=== PATIENT | female | born 1950 | race Caucasian/White ===

== ENCOUNTER 2020-02-19 14:52 | Emergency (ER) | payer MEDICARE, SELFPAY ==
--- NOTE | ~2020-02-19 | XR_ITS ---
XR nasal bones min 3V DATE: 02/19/2020 16:11 INDICATION: Fall, nasal injury today TECHNIQUE: Vega and left right lateral views of the nasal bones COMPARISON: None FINDINGS: The anterior maxillary spine appears intact. No nasal bone fracture is evident. IMPRESSION: Negative nasal bones Reviewed, dictated and finalized at location A. IMPRESSION: Negative nasal bones
[2020-02-19 15:11] VITALS: BP 172/86; PULSE 77; RESP 16; TEMP 37; O2SAT 99
--- NOTE | 2020-02-19 15:30 | ED.WOUNDLAC ---
HPI - Wound/Laceration General Chief Complaint: Wound/Laceration Stated Complaint: Fall Cut r/l hand/nose/head Time Seen by Provider: 02/19/20 15:30 Source: patient Mode of arrival: ambulatory Limitations: no limitations History of Present Illness HPI narrative: Priscilla Hickman is a 69 yo female with a PMH of depression, high cholesterol, hypertension, diabetes, hypothyroid, prior leakage, who comes to express care after fall while walking dog. Has abrasion of the forehead and across nose. Abrasions on bilateral palms of hands Related Data Home Medications Medication Instructions Recorded Confirmed Potassium 99 mg PO DAILY 02/19/20 calcium carbonate [Calcium 600] 600 mg PO DAILY 02/19/20 02/19/20 cholecalciferol (vitamin D3) 50 mcg PO DAILY 02/19/20 02/19/20 [Vitamin D3] coQ10 (liposomal ubiquinol) 100 mg PO DAILY 02/19/20 02/19/20 [Active Q] diphenhydramine-acetaminophen 2 tablet PO HS 02/19/20 02/19/20 [Tylenol PM Extra Strength] duloxetine [Cymbalta] 60 mg PO DAILY 02/19/20 02/19/20 liothyronine 25 mcg PO TID 02/19/20 02/19/20 mecobalamin (vitamin B12) 500 mcg PO DAILY 02/19/20 02/19/20 multivit with min-folic acid 1 tablet PO DAILY 02/19/20 02/19/20 [Centrum MultiGummies] nebivolol [Bystolic] 10 mg PO DAILY 02/19/20 02/19/20 omega [id number] oil [Fish Oil] 1 cap PO DAILY 02/19/20 02/19/20 oxybutynin chloride [Ditropan XL] 10 mg PO DAILY 02/19/20 02/19/20 phentermine 37.5 mg PO DAILY 02/19/20 02/19/20 rosuvastatin [Crestor] 5 mg PO DAILY 02/19/20 02/19/20 sitagliptin [Januvia] 100 mg PO DAILY 02/19/20 02/19/20 spironolactone [Aldactone] 25 mg PO DAILY 02/19/20 02/19/20 valsartan 160 mg PO DAILY 02/19/20 02/19/20 Allergies Allergy/AdvReac Type Severity Reaction Status Date / Time No Known Allergies Allergy Verified 02/19/20 15:15 Review of Systems Review of Systems: Narrative: CONSTITUTIONAL: Denies fever, chills, sweats. EYES: Denies visual changes, redness, discharge. ENT: Denies rhinorrhea, congestion, sore throat, otalgia. CARDIOVASCULAR: Denies chest pain, palpitations, edema. RESPIRATORY: Denies dyspnea, wheezing, cough GASTROINTESTINAL: Denies abdominal pain, nausea, vomiting, diarrhea. GENITOURINARY: Denies dysuria, hematuria, abnormal discharge SKIN: Denies rash or itching. Bilateral palm abrasions, patient forehead and across nose NEUROLOGIC: Denies numbness, or focal weakness. PSYCHIATRIC: Denies anxiety or depression. [facility] Family History Family History Other Diabetes mellitus Hypertension Social History Social History (Updated 02/19/20 @ 15:34 by Helena Wiggins CNP) Smoking status: Former smoker Alcohol intake: current Gender identity (if verbalized by the patient): Female Comments At time of signature, I agree with nursing past medical, surgical, social and family history. There is no relevant family history pertinent to the presenting complaint. Exam Narrative: Exam Narrative: GENERAL: This is a well-nourished, well-developed patient, in mild distress. HEAD: normocephalic, atraumatic. EYES: PERRL. Sclera clear/white. Vision is grossly intact. EARS: External ears normal, auditory canals clear and without drainage, TMs normal without perforation. Hearing grossly intact. NOSE: External nose normal without nasal discharge, nares without redness, no rhinorrhea. THROAT: Mucous membranes moist, posterior pharynx NECK: Neck supple, non-tender CARDIOVASCULAR: Regular rate and rhythm without murmurs, gallops, or rubs. RESPIRATORY: Clear to auscultation. Breath sounds equal bilaterally. No wheezes, rales, or rhonchi. GASTROINTESTINAL: Abdomen soft, non-tender, SKIN: warm, intact with no suspicious lesions or rash, good texture and turgor. NEURO: awake, alert, and oriented to person, place and time. There were no obvious focal neurologic abnormalities. Steady gait EXTREMITIES: Normal range of motion. BACK: Nonte
[2020-02-19] MEDS: TETANUS,DIPHTHERIA,AC PERTUSSIS ADULT (0.5 ML) BOOSTRIX IM (15:51)
== END 2020-02-19 16:30 | disposition home or self-care (01) ==
PROVIDERS: Emergency Provider Nurse Practitioner; PCP Physician Assistant
DX: S01.81XA Laceration without foreign body of other part of head, initial encounter (principal); I10 Essential (primary) hypertension; E11.9 Type 2 diabetes mellitus without complications; E03.9 Hypothyroidism, unspecified; Z87.891 Personal history of nicotine dependence
CPT/HCPCS: 12011; 70160; 90471; 90715; 99213; G0463

== ENCOUNTER → 2020-09-06 10:43 | Outpatient (CLI) | payer MEDICARE, SELFPAY ==
--- NOTE | ~2020-09-06 | DEXA_ITS ---
Bone Density Report Name: Priscilla Hickman Age: 70 Sex: Female Ethnicity: White Date of : 1950 Indication: postmenopausal; screening for osteoporosis; height loss; Referring Provider: Canelo, Brenna Study: Bone densitometry was performed. Exam Date: September 06, 2020 Accession number: [id number] Bone Density: Region BMD T-score Z-score Classification AP Spine (L1-L4) 1.252 1.9 3.8 Normal Femoral Neck (Left) 0.836 -0.1 1.6 Normal Total Hip (Left) 1.160 1.8 3.2 Normal Femoral Neck (Right) 0.819 -0.3 1.4 Normal Total Hip (Right) 1.200 2.1 3.5 Normal Total Hip Mean 1.180 2.0 3.4 Normal World Health Organization criteria for BMD impression classify patients as: Normal (T-score at or above -1.0), Osteopenia (T-score between -1.0 and -2.5), or Osteoporosis (T-score at or below -2.5). 10-year Fracture Risk: FRAX not reported because: All T-scores for Spine Total, Hip Total, Femoral Neck at or above -1.0 Previous Exams: Region Exam Age BMD T-score BMD Change BMD Change Date g/cm2 vs Baseline vs Previous AP Spine(L1-L4) 09/06/2020 70 1.252 1.9 0.001 -0.023* 10/03/2016 66 1.275 2.1 0.024* -0.046* 10/03/2013 63 1.321 2.5 0.071* 0.024* 07/23/2010 60 1.297 2.3 0.047* 0.047* 01/27/2006 55 1.250 1.8 Total Hip(Left) 09/06/2020 70 1.160 1.8 -0.006 -0.004 10/03/2016 66 1.165 1.8 -0.001 0.081* 10/03/2013 63 1.084 1.2 -0.082* 0.005 07/23/2010 60 1.079 1.1 -0.086* -0.086* 01/27/2006 55 1.166 1.8 Total Hip(Right) 09/06/2020 70 1.200 2.1 -0.060* -0.034* 10/03/2016 66 1.234 2.4 -0.026 0.087* 10/03/2013 63 1.147 1.7 -0.113* 0.019 07/23/2010 60 1.128 1.5 -0.132* -0.132* 01/27/2006 55 1.260 2.6 *Denotes significance at 95% confidence level, LSC for AP Spine = 0.022 g/cm2, LSC for Total Hip = 0.027 g/cm2 Clinical Information Provided by Patient: Has used the following medications: Vitamin D, Calcium Patient maximum height was 65 Menopause Age: 52 No regular weight bearing exercise Drinks caffeinated beverages Onset of menses at age 14 Number of children 0 Impression: The patient has normal bone mass. The BMD for the AP Spine(L1-L4) decreased, changing by
--- NOTE | ~2020-09-06 | MM_ITS ---
EXAMINATION: MM screening [facility] BI w hort[place] HISTORY: Screening mammogram TECHNIQUE: Craniocaudal and mediolateral oblique 3-D tomosynthesis images were obtained and synthetic 2-D images were generated. CAD analysis was submitted and interpreted. COMPARISON: 07/15/2019, 07/12/2018, 07/06/2017 BREAST PARENCHYMAL COMPOSITION: The breasts are almost entirely fatty. FINDINGS: A subareolar mass in the slightly outer right breast has an appearance similar to prior [facility] mograms. There is no evidence of suspicious mass, calcification, or architectural distortion to sugge st malignancy in either breast. There has been no suspicious interval change. IMPRESSION: 1. No mammographic evidence of malignancy. 2. Recommend routine screening mammography in one year. BI-RADS Category 2: Benign finding(s). Reviewed, dictated and finalized at location A. L TURNER
== END ==
PROVIDERS: PCP Physician Assistant; Visit Provider Nurse Practitioner
DX: Z12.31 Encounter for screening mammogram for malignant neoplasm of breast (principal); Z78.0 Asymptomatic menopausal state
CPT/HCPCS: 77063; 77067; 77080

== ENCOUNTER → 2022-02-18 13:44 | Outpatient (CLI) | payer MEDICARE, SELFPAY ==
--- NOTE | ~2022-02-18 | MM_ITS ---
EXAMINATION: MM screening [facility] BI w [place] HISTORY: Screening TECHNIQUE: Craniocaudal and mediolateral oblique 3-D tomosynthesis images were obtained and synthetic 2-D images were generated. CAD analysis was submitted and interpreted. COMPARISON: Comparison to multiple prior studies sequentially, with oldest reviewed study dated 05/2016. BREAST PARENCHYMAL COMPOSITION: There are scattered areas of fibroglandular density. FINDINGS: There is no evidence of suspicious mass, calcification, or architectural distortion to sugg est malignancy in either breast. There has been no suspicious interval change. IMPRESSION: 1. No mammographic evidence of malignancy. 2. Recommend routine screening mammography in one year. BI-RADS Category 1: Negative Reviewed, dictated and finalized at location A.
== END ==
PROVIDERS: PCP Physician Assistant; Visit Provider Obstetrics & Gynecology Gynecology
DX: Z12.31 Encounter for screening mammogram for malignant neoplasm of breast (principal)
CPT/HCPCS: 77063; 77067

== ENCOUNTER 2023-01-29 13:56 | Outpatient (CLI) | payer MEDICARE, SELFPAY ==
--- NOTE | ~2023-01-29 | XR_ITS ---
XR chest 2V DATE: 01/29/2023 14:23 INDICATION: Subacute cough for years TECHNIQUE: PA and lateral views COMPARISON: 10/08/2010 PA and lateral chest FINDINGS: Normal heart size. Aortic arch calcification. No hilar or mediastinal enlargement. No pulmonary infiltrate or consolidation, pleural effusion or pulmonary vascular congestion or pneumo thorax. IMPRESSION: No active cardiopulmonary disease. Aortic atherosclerosis. Reviewed, dictated and finalized at location A.
== END 2023-01-29 13:57 | disposition home or self-care (01) ==
PROVIDERS: PCP Physician Assistant; Visit Provider Physician Assistant
DX: R05.2 Subacute cough (principal); I70.0 Atherosclerosis of aorta
CPT/HCPCS: 71046

== ENCOUNTER → 2023-02-20 10:27 | Outpatient (CLI) | payer MEDICARE, SELFPAY ==
--- NOTE | ~2023-02-20 | MM_ITS ---
EXAMINATION: MM screening [facility] BI w [place] HISTORY: Screening mammogram TECHNIQUE: Craniocaudal and mediolateral oblique 3-D tomosynthesis images were obtained and synthetic 2-D images were generated. CAD analysis was submitted and interpreted. COMPARISON: February 18, 2022, September 06, 2020, July 15, 2019 bilateral [facility] BREAST PARENCHYMAL COMPOSITION: The breasts are almost entirely fatty. FINDINGS: There is no evidence of suspicious mass, calcification, or architectural distortion to sugg est malignancy in either breast. There has been no suspicious interval change. IMPRESSION: 1. No mammographic evidence of malignancy. 2. Recommend routine screening mammography in one year. BI-RADS Category 1: Negative Reviewed, dictated and finalized at location A.
== END ==
PROVIDERS: PCP Nurse Practitioner; Visit Provider Nurse Practitioner
DX: Z12.31 Encounter for screening mammogram for malignant neoplasm of breast (principal)
CPT/HCPCS: 77063; 77067

== ENCOUNTER 2023-07-21 12:07 | Outpatient (CLI) | payer MEDICARE, SELFPAY ==
--- NOTE | ~2023-07-21 | XR_ITS ---
EXAMINATION: XR chest 2V 07/21/2023 12:22 INDICATION: Cough for greater than one year PROCEDURE: 2 view chest COMPARISON: 01/29/2023 FINDINGS: The lungs are clear. The cardiomediastinal silhouette is within normal limits. There are no pleural effusions. There is no pneumothorax suspected. IMPRESSION: 1: NO ACUTE CARDIOPULMONARY DISEASE. Reviewed, dictated and finalized at location L.
== END 2023-07-21 12:08 | disposition home or self-care (01) ==
LOC: ANHIMG 12:10
PROVIDERS: PCP Family Medicine; Visit Provider Physician Assistant
DX: R05.1 Acute cough (principal); R09.89 Other specified symptoms and signs involving the circulatory and respiratory systems
CPT/HCPCS: 71046

== ENCOUNTER 2025-01-04 09:47 | Outpatient (CLI) | payer MEDICARE, SELFPAY ==
--- NOTE | ~2025-01-04 | XR_ITS ---
CHEST RADIOGRAPH, PA AND LATERAL CLINICAL HISTORY: R06.00 - Dyspnea, unspecified . COMPARISON: 07/21/2023 TECHNIQUE: PA and lateral views of the chest. FINDINGS The cardiomediastinal silhouette is unremarkable. The lungs are clear. Visualized osseous structures and soft tissues are unremarkable. IMPRESSION: No focal infiltrate or effusion. Reviewed, dictated and finalized at location A.
== END 2025-01-04 09:48 | disposition home or self-care (01) ==
LOC: MICIMG 09:48
PROVIDERS: PCP Family Medicine; Visit Provider Student in an Organized Health Care Education/Training Program
DX: R06.00 Dyspnea, unspecified (principal)
CPT/HCPCS: 71046

== ENCOUNTER 2025-01-16 10:43 | Outpatient (CLI) | payer MEDICARE, SELFPAY ==
--- NOTE | ~2025-01-16 | MM_ITS ---
EXAMINATION: MM screening [facility] BI w [place] HISTORY: Screening TECHNIQUE: Craniocaudal and mediolateral oblique 3-D tomosynthesis images were obtained and synthetic 2-D images were generated. CAD analysis was submitted and interpreted. COMPARISON: 02/20/2023 and dating back to 07/15/2019 BREAST PARENCHYMAL COMPOSITION: There are scattered areas of fibroglandular density. FINDINGS: Punctate calcifications are detected bilaterally, stable and benign in appearance. Redemonstration of an intramammary lymph node within the upper outer right breast. Stable parenchymal pattern without suspicious microcalcifications, architectural distortion, discrete masses or significant asymmetry. IMPRESSION: 1. No mammographic evidence of malignancy. 2. Recommend routine screening mammography in one year. BI-RADS Category 2: Benign finding(s). Reviewed, dictated and finalized at location A.
== END 2025-01-16 10:44 | disposition home or self-care (01) ==
LOC: MICIMG 10:43
PROVIDERS: PCP Family Medicine; Visit Provider Nurse Practitioner
DX: Z12.31 Encounter for screening mammogram for malignant neoplasm of breast (principal)
CPT/HCPCS: 77063; 77067

== ENCOUNTER 2025-02-27 15:18 | Outpatient (CLI) | payer MEDICARE, SELFPAY ==
--- NOTE | ~2025-02-27 | XR_ITS ---
XR shoulder RT min 2V Ordering provider: Linda Bhat PA-C History: . M25.511 - Pain in right shoulder . Comparison: None. FINDINGS: BONES: No acute fracture or dislocation. JOINT SPACES: The acromioclavicular joint is normal. The glenohumeral joint is normal. SOFT TISSUES: Normal. IMPRESSION: No acute osseous abnormality right shoulder. Reviewed, dictated and finalized at location A.
== END 2025-02-27 15:19 | disposition home or self-care (01) ==
LOC: MICIMG 15:19
PROVIDERS: PCP Family Medicine; Visit Provider Student in an Organized Health Care Education/Training Program
DX: M25.511 Pain in right shoulder (principal)
CPT/HCPCS: 73030

== ENCOUNTER 2025-03-27 12:39 | Outpatient (CLI) | payer MEDICARE, SELFPAY ==
--- NOTE | ~2025-03-27 | DEXA_ITS ---
Bone Density Report Name: SHAUN DWYER Age: 74 Sex: Female Ethnicity: White Date of : 1950 Indication: postmenopausal; screening for osteoporosis; height loss; Referring Provider: Canelo*Ana Luisa, Brenna Study: Bone densitometry was performed. Exam Date: March 27, 2025 Accession number: [id number] Bone Density: Region BMD T-score Z-score Classification AP Spine(L1-L4) 1.315 2.4 4.7 Normal Femoral Neck (Left) 0.823 -0.2 1.7 Normal Total Hip (Left) 1.104 1.3 3.0 Normal Femoral Neck (Right) 0.838 -0.1 1.9 Normal Total Hip (Right) 1.155 1.7 3.4 Normal Total Hip Mean 1.129 1.5 3.2 Normal World Health Organization criteria for BMD impression classify patients as: Normal (T-score at or above -1.0), Osteopenia (T-score between -1.0 and -2.5), or Osteoporosis (T-score at or below -2.5). 10-year Fracture Risk: FRAX not reported because: All T-scores for Spine Total, Hip Total, Femoral Neck at or above -1.0 Previous Exams: -- Region Exam Age BMD T-score BMD Change BMD Change Date g/cm2 vs Baseline vs Previous -- AP Spine (L1-L4) 03/27/2025 74 1.315 2.4 5.2%* 5.1%* 09/06/2020 70 1.252 1.9 0.1% -1.8%* 10/03/2016 66 1.275 2.1 1.9%* -3.5%* 10/03/2013 63 1.321 2.5 5.7%* 1.8%* 07/23/2010 60 1.297 2.3 3.7%* 3.7%* 01/27/2006 55 1.250 1.8 Total Hip(Left) 03/27/2025 74 1.104 1.3 -5.3%* -4.9%* 09/06/2020 70 1.160 1.8 -0.5% -0.4% 10/03/2016 66 1.165 1.8 -0.1% 7.4%* 10/03/2013 63 1.084 1.2 -7.0%* 0.4% 07/23/2010 60 1.079 1.1 -7.4%* -7.4%* 01/27/2006 55 1.166 1.8 Total Hip(Right) 03/27/2025 74 1.155 1.7 -8.4%* -3.7%* 09/06/2020 70 1.200 2.1 -4.8%* -2.8%* 10/03/2016 66 1.234 2.4 -2.1% 7.6%* 10/03/2013 63 1.147 1.7 -9.0%* 1.7% 07/23/2010 60 1.128 1.5 -10.5%* -10.5%* 01/27/2006 55 1.260 2.6 -- *Denotes significance at 95% confidence level, LSC for AP Spine = 0.022 g/cm2, LSC for Total Hip = 0.027 g/cm2 Clinical Information Provided by Patient: Has used the following medications: Vitamin D, Calcium Patient maximum height was 65 Menopause Age: 52 No regular weight bearing exercise Drinks caffeinated beverages Onset of menses at age 14 Number of children 0 Impression: The patient has normal bone mass. The BMD for the Total Hip(Left) decreased, changing by -4.9% since the last DXA exam. The BMD for the Total Hip(Right) decreased, changing by -3.7% since the last DXA exam. Discussion: BONE DENSITY IS ABOVE THE MINIMUM DESIRABLE LEVEL AT ALL SKELETAL SITES TESTED. This patient?s bone mineral density is above the minimum desirable level (T-score -1.0 or better) at all sites measured. The patient should follow a healthful lifestyle (good nutrition with adequate calcium and vitamin D, and appropriate weight-bearing exercise). Follow-Up: Consider repeating this study in 3 to 4 years to reassess this patient's status, or sooner if there is some new clinical indication. Reported by: CARMINA on 03/27/2025 1:02:00 PM. Reviewed, dictated and finalized at location A.
== END 2025-03-27 12:40 | disposition home or self-care (01) ==
LOC: MICIMG 12:40
PROVIDERS: PCP Family Medicine; Visit Provider Nurse Practitioner
DX: Z78.0 Asymptomatic menopausal state (principal)
CPT/HCPCS: 77080